=== PATIENT | female | born 1945 | race Caucasian/White ===

== ENCOUNTER 2017-11-09 09:55 | Emergency (ER) | payer OTHER ==
[~2017-11-09 09:55] MED LIST: ALBU1AER INH; ATOR40TA49 PO; CALCTAB77 PO; COQ-100C5 PO; ESTR0.5T PO; FLUT1INH PO; MEDR2.5T19 PO; METO25 PO; NITR.4 SL; VITA10002 PO
[2017-11-09 09:57] VITALS: BP 150/70; PULSE 90; RESP 16; TEMP 98.7; O2SAT 97
--- NOTE | 2017-11-09 10:24 | PD ---
HPI Chief Complaint: Neuro Symptoms/ Deficits Time Seen by Provider: 10:20 Travel History International Travel<30 days: No Contact w/Intl Traveler<30days: No Traveled to known affect area: No History of Present Illness HPI 72-year-old female patient presents to the ER today for right sided headaches, started 3-4 days ago with some neck discomfort that shot to worst her scalp and temporal area, had seen her primary care physician and at that time was managed symptomatically, here now sent in by primary care physician because she states that this morning she woke up with swelling to her right eyelids, was having intermittent blurry vision, and put ice compresses on the area. The swelling has completely gone away at this point even though it happened at 7 AM. She denies any itching, denies any blurry vision now, denies any vomiting, fevers, or other symptoms. She states that her headache is currently a 5 out of 10 and is waxing and waning. 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 ) Cancer: No Cardiac Catheterization: Yes Cardiovascular Problems: Yes (CATH, STRESS TEST, IRREGULAR HEART BEAT,MURMUR) High Cholesterol: Yes Congestive Heart Failure: No COPD: Yes Diabetes: No Endocrine: No Genitourinary: No Hepatitis: No Hiatal Hernia: No Hypertension: Yes Immune Disorder: No Musculoskeletal: Yes (ARTHRITIS) Neurologic: No Psychiatric: Yes (HX OF ANXIETY DEPRESSION) Reproductive: No Respiratory: Yes (COPD) Thyroid Disease: No Past Surgical History Abdominal Surgery: Yes (APPY) AICD: No Appendectomy: Yes Cardiac Surgery: No Coronary Artery Bypass Graft: No Ear Surgery: No Endocrine Surgery: No Eye Surgery: Yes (RAGHAV CAT ) Genitourinary Surgery: No Gynecologic Surgery: No Joint Replacement: No Oral Surgery: No Pacemaker: No Thoracic Surgery: No Social History Alcohol Use: Yes (OCC) Tobacco Use: No (QUIT 40 YEARS AGO) Substance Use: No Allergies-Medications (Allergen,Severity, Reaction): Coded Allergies: No Known Allergies (Verified Adverse Reaction, Unknown, 11/09/17) Reported Meds & Prescriptions Reported Meds & Active Scripts Active Review of Systems Except as stated in HPI: all other systems reviewed are Neg Physical Exam Narrative GENERAL: Well-developed elderly white female patient currently in mild distress. Awake and oriented 3. SKIN: Focused skin assessment warm/dry. HEAD: Atraumatic. Normocephalic. Mild right temporal tenderness. EYES: Pupils equal and round. No scleral icterus. No injection or drainage. I do not see any significant signs of eyelid edema or facial edema. ENT: No nasal bleeding or discharge. Mucous membranes pink and moist. NECK: Trachea midline. No JVD. Supple. No bruits. No palpable masses. CARDIOVASCULAR: Regular rate and rhythm. No murmur appreciated. RESPIRATORY: No accessory muscle use. Clear to auscultation. Breath sounds equal bilaterally. GASTROINTESTINAL: Abdomen soft, non-tender, nondistended. Hepatic and splenic margins not palpable. MUSCULOSKELETAL: No obvious deformities. No clubbing. No cyanosis. No edema. NEUROLOGICAL: Awake and alert. No obvious cranial nerve deficits. Motor grossly within normal limits. Normal speech. PSYCHIATRIC: Appropriate mood and affect; insight and judgment normal. Data Data Last Documented VS Vital Signs Date Time Temp Pulse Resp B/P (MAP) Pulse Ox O2 Delivery O2 Flow Rate FiO2 11/09/17 10:29 15 97 Room Air 11/09/17 09:57 98.7 90 Orders Orders Complete Blood Count With Diff (11/09/17 10:20) Comprehensive Metabolic Panel (11/09/17 10:20) Westergren Sedimentation Rate (11/09/17 10:20) C-Reactive Protein (Crp) (11/09/17 10:20) Prothrombin Time / Inr (Pt) (11/09/17 10:20) Act Partial Throm Time (Ptt) (11/09/17 10:20) Ct Brain W/O Iv Contrast(Rout) (11/09/17 10:20) Ecg Monitoring (11/09/17 10:20) Iv Access Insert/Monitor (11/09/17 10:20) Oximetry (11/09/17 10:20) Sodium Chloride 0.9% Flush (Ns Flush) (11/09/17 10:30) Labs Laboratory Tests Test 11/09/17 10:25 White Blood Count 11.4 TH/MM3 Red Blood Count 3.73 MIL/MM3 Hemoglobin 12.5 GM/DL Hematocrit 37.1 % Mean Corpuscular Volume 99.3 FL Mean Corpuscular Hemoglobin 33.4 PG Mean Corpuscular Hemoglobin Concent 33.7 % Red Cell Distribution Width 14.3 % Platelet Count 237 TH/MM3 Mean Platelet Volume 9.1 FL Neutrophils (%) (Auto) 64.8 % Lymphocytes (%) (Auto) 22.5 % Monocytes (%) (Auto) 8.8 % Eosinophils (%) (Auto) 2.6 % Basophils (%) (Auto) 1.3 % Neutrophils # (Auto) 7.4 TH/MM3 Lymphocytes # (Auto) 2.6 TH/MM3 Monocytes # (Auto) 1.0 TH/MM3 Eosinophils # (Auto) 0.3 TH/MM3 Basophils # (Auto) 0.2 TH/MM3 CBC Comment DIFF FINAL Differential Comment Erythrocyte Sedimentation Rate 12 mm/hr Prothrombin Time 10.2 SEC Prothromb Time International Ratio 1.0 RATIO Activated Partial Thromboplast Time 21.0 SEC Blood Urea Nitrogen 16 MG/DL Creatinine 0.81 MG/DL Random Glucose 89 MG/DL Total Protein 7.5 GM/DL Albumin 3.7 GM/DL Calcium Level 9.1 MG/DL Alkaline Phosphatase 78 U/L Aspartate Amino Transf (AST/SGOT) 15 U/L Alanine Aminotransferase (ALT/SGPT) 21 U/L Total Bilirubin 0.4 MG/DL Sodium Level 139 MEQ/L Potassium Level 3.6 MEQ/L Chloride Level 105 MEQ/L Carbon Dioxide Level 25.5 MEQ/L Anion Gap 9 MEQ/L Estimat Glomerular Filtration Rate 69 ML/MIN C-Reactive Protein 0.57 MG/DL [facility] Medical Decision Making Medical Screen Exam Complete: Yes Emergency Medical Condition: Yes Medical Record Reviewed: Yes Interpretation(s) Laboratory Tests Test 11/09/17 10:25 White Blood Count 11.4 TH/MM3 (4.0-11.0) Red Blood Count 3.73 MIL/MM3 (4.00-5.30) Monocytes (%) (Auto) 8.8 % (0.0-8.0) Monocytes # (Auto) 1.0 TH/MM3 (0-0.9) Activated Partial Thromboplast Time 21.0 SEC (24.3-30.1) Estimat Glomerular Filtration Rate 69 ML/MIN (>89) C-Reactive Protein 0.57 MG/DL (0.00-0.30) Last [address] 11/09/17 1020 Signed Impressions: Service Date/Time: Thursday, November 09, 2017 10:41 - CONCLUSION: 1. No acute intracranial abnormality. Oscar Ortega MD Differential Diagnosis Right sided headaches and neck pain: Cervical radiculopathy versus tic douloureux versus sinusitis versus acute intracranial process Narrative Course Patient has no focal neurological deficits. Vision on the right eye is 20/20. Vital signs are stable. I do not see any significant facial swelling or eyelid swelling now. Pupils are equal and reactive to light bilaterally. She is not having any eye pain. Symptoms seems to be coming from the neck and I suspect that this is more likely to be a cervical radiculopathy versus muscle spasms. I do not see signs of an allergic reaction and she is not on any new medications. My plan at this point would be to release her with follow-up to primary care doctor. Return for any worsening in symptoms as needed. The plan was discussed with her and she states understanding. We will give her some steroids to help Lopid with symptoms related to possible cervical radiculopathy and medications for pain. Diagnosis Primary Impression: Headache Additional Impression: Neck pain Med/Other Pt SpecificInfo: Prescription(s) given Scripts Ibuprofen (Ibuprofen) 600 Mg Tab 600 MG PO Q6H Y for Pain/Inflammation, #20 TAB 0 Refills Prov: Edmond Cabrera MD 11/09/17 Prednisone (21) 10 mg tab Dose Pack (Prednisone (21) 10 mg tab Dose Pack) 10 Mg Pack 10 MG PO DIRECTED for Inflammation, #1 DSPK 0 Refills Prov: Edmond Cabrera MD 11/09/17 Disposition: 01 DISCHARGE HOME Condition: Stable Edmond Cabrera MD Nov 09, 2017 10:24
[2017-11-09 10:29] VITALS: RESP 15; O2SAT 97
[2017-11-09] MEDS ORDERED: SODIUM CHLORIDE 0.9% FLUSH 10 ML FLUSH IVF PRN (10:30)
[2017-11-09 10:46] LABS: AUTOMATED NEUTROPHIL # 7.4 TH/MM3 (1.8-7.7); BASOPHIL # 0.2 TH/MM3 (0-0.2); BASOPHIL % 1.3 % (0.0-2.0); EOSINOPHIL # 0.3 TH/MM3 (0-0.4); EOSINOPHIL % 2.6 % (0.0-4.0); HEMATOCRIT 37.1 % (35.0-46.0); HEMOGLOBIN 12.5 GM/DL (11.6-15.3); LYMPH % 22.5 % (9.0-44.0); LYMPHOCYTE # 2.6 TH/MM3 (1.0-4.8); MEAN CELL VOLUME 99.3 FL (80.0-100.0); MEAN CORPUSCULAR HEMOGLOBIN 33.4 PG (27.0-34.0); MEAN CORPUSCULAR HGB CONC 33.7 % (32.0-36.0); MEAN PLATELET VOLUME 9.1 FL (7.0-11.0); MONO % 8.8 % (0.0-8.0); NEUT % 64.8 % (16.0-70.0); PLATELET COUNT 237 TH/MM3 (150-450); RED BLOOD COUNT 3.73 MIL/MM3 (4.00-5.30); RED CELL DISTRIBUTION WIDTH 14.3 % (11.6-17.2); WHITE BLOOD COUNT 11.4 TH/MM3 (4.0-11.0)
[2017-11-09 11:00] LABS: PROTHROMBIN TIME - PATIENT 10.2 SEC (9.8-11.6)
--- NOTE | 2017-11-09 11:04 | RADRPT ---
EXAM DATE/TIME: 11/09/2017 10:41 [facility] COMPARISON: No previous studies available for comparison. INDICATIONS : Headache and blurred vision in right eye, right facial swelling. RADIATION DOSE: 56.35 CTDIvol (mGy) MEDICAL HISTORY : Cardiovascular disease. Chronic obstructive pulmonary disease. Hypertension. SURGICAL HISTORY : None. ENCOUNTER: Initial ACUITY: 3 days PAIN SCALE: 4/10 LOCATION: Right temporal TECHNIQUE: Multiple contiguous axial images were obtained of the head. Using automated exposure control and adj ustment of the mA and/or kV according to patient size, radiation dose was kept as low as reasonably a chievable to obtain optimal diagnostic quality images. DICOM format image data is available electro nically for review and comparison. FINDINGS: CEREBRUM: The ventricles are normal for age. No evidence of midline shift, mass lesion, hemorrhage or acute in farction. No extra-axial fluid collections are seen. POSTERIOR FOSSA: The cerebellum and brainstem are intact. The 4th ventricle is midline. The cerebellopontine angle i s unremarkable. EXTRACRANIAL: The visualized portion of the orbits is intact. SKULL: The calvaria is intact. No evidence of skull fracture. CONCLUSION: 1. No acute intracranial abnormality. Oscar Ortega MD on November 09, 2017 at 11:01 Board Certified Radiologist. This report was verified electronically.
[2017-11-09 11:15] LABS: ALBUMIN 3.7 GM/DL (3.4-5.0); ALT (GPT) 21 U/L (10-53); AST (GOT) 15 U/L (15-37); BICARBONATE 25.5 MEQ/L (21.0-32.0); BLOOD UREA NITROGEN 16 MG/DL (7-18); C-REACTIVE PROTEIN 0.57 MG/DL (0.00-0.30); CALCIUM 9.1 MG/DL (8.5-10.1); CHLORIDE 105 MEQ/L (98-107); CREATININE 0.81 MG/DL (0.50-1.00); GLOMERULAR FILTRATION RATE 69 ML/MIN (>89); GLUCOSE,RANDOM 89 MG/DL (74-106); SODIUM (NA) 139 MEQ/L (136-145)
[2017-11-09 11:22] LABS: ALKALINE PHOSPHATASE 78 U/L (45-117); TOTAL BILIRUBIN ADULT 0.4 MG/DL (0.2-1.0); TOTAL PROTEIN 7.5 GM/DL (6.4-8.2)
[2017-11-09] MEDS ORDERED: PRED10PA PO (11:58)
[2017-11-09] MEDS ORDERED: IBUP-232 PO (11:58)
== END 2017-11-09 12:17 | disposition home or self-care (01) ==
LOC: NEPC 09:55
DX: R51 Headache (principal); M54.2 Cervicalgia; E78.00 Pure hypercholesterolemia, unspecified; J44.9 Chronic obstructive pulmonary disease, unspecified; I10 Essential (primary) hypertension; M19.90 Unspecified osteoarthritis, unspecified site
CPT/HCPCS: 70450; 80053; 85025; 85610; 85652; 85730; 86140; 99285